=== PATIENT | female | born 1945 | race Caucasian/White ===

== ENCOUNTER → 2016-06-09 | Outpatient (CLI) | payer OTHER ==
[2016-06-09 13:11] LABS: ALT/SGPT 27 U/L (12-78); AST/SGOT 15 U/L (15-37); BLOOD UREA NITROGEN 19 mg/dl (7-18); BUN/CREATININE RATIO 30.3 (10-20); CALCIUM 8.9 mg/dl (8.5-10.1); CARBON DIOXIDE 29 mmol/L (21-32); CHLORIDE 107 mmol/L (98-107); CREATININE 0.64 mg/dl (0.60-1.20); GLUCOSE 90 mg/dl (70-99); POTASSIUM 3.9 mmol/L (3.5-5.1); SODIUM 142 mmol/L (136-145)
[2016-06-09 13:14] LABS: ALB/GLOB RATIO 0.9 (0.9-2); ALKALINE PHOSPHATASE 74 U/L (45-117); CHOLESTEROL 173 mg/dl (0-200); CHOLESTEROL/HDL RATIO 3.3; HDL CHOLESTEROL 53 mg/dl; LDL CHOLESTEROL CALCULATED 94 mg/dl; TRIGLYCERIDES 130 mg/dl (0-150); VERY LOW DENSITY LIPOPROT CALC 26 mg/dl
== END | disposition home or self-care (01) ==
LOC: C.LABBFT 07:54
PROVIDERS: ATTEND Physician Assistant Medical
DX: E78.00 Pure hypercholesterolemia, unspecified (principal)

== ENCOUNTER → 2016-06-16 | Outpatient (CLI) | payer OTHER | END | disposition home or self-care (01) | LOC: C.LABSPEC 17:30 | PROVIDERS: ATTEND Physician Assistant Medical | DX: Z12.11 Encounter for screening for malignant neoplasm of colon (principal) ==

== ENCOUNTER 2025-01-14 08:11 | Observation (INO) ==
--- NOTE | 2024-12-12 13:48 | PAT Medication Instructions ---
Medication Instructions Date of Service December 12, 2024 Home Medications Medication Instructions Recorded cholecalciferol (vitamin D3) 50 2,000 unit PO DAILY #30 caps 11/23/24 mcg (2,000 unit) capsule latanoprostene bunod 0.024 % eye drops (Vyzulta) 1 drops ophthalmic (eye) HS omega-3 fatty acids [Fish Oil Concentrate] 1 cap PO DAILY timolol maleate 0.5 % eye drops 1 drp ophthalmic (eye) QAM cholecalciferol (vitamin D3) 50 mcg (2,000 unit) capsule 2,000 unit PO DAILY sumatriptan succinate 50 mg tablet 50 mg PO DAILY PRN Migraine Headache STOP taking 2 weeks before surgery (or as soon as possible if surgery is within 2 weeks) omega-3 fatty acids [Fish Oil Concentrate] 1 cap PO DAILY DO NOT take the morning of surgery cholecalciferol (vitamin D3) 50 mcg (2,000 unit) capsule 2,000 unit PO DAILY Take morning of surgery With a small sip of water, OTHERWISE NOTHING TO EAT OR DRINK AFTER MIDNIGHT: timolol maleate 0.5 % eye drops 1 drp ophthalmic (eye) QAM sumatriptan succinate 50 mg tablet 50 mg PO DAILY PRN Migraine Headache (if needed) Take evening before surgery latanoprostene bunod 0.024 % eye drops (Vyzulta) 1 drops ophthalmic (eye) HS sumatriptan succinate 50 mg tablet 50 mg PO DAILY PRN Migraine Headache (if needed) Other Notes If you have any questions please call us at [phone] or [phone] or [phone] or [phone]
--- NOTE | 2024-12-18 10:55 | Anesthesiology Consultation ---
Date of Service December 18, 2024 Assessment & Plan (1) Encounter for pre-operative examination: Plan - workload note to PCP regarding pre-op testing including abnormal EKG and if patient needs cardiology evaluation prior to surgery. Case discussed in detail with Dr. Staton who agreed with plan. Surgeon's office made aware. Patient made aware at PAT visit after review of EKG tracing. - Outpatient joint assessment: Patient is currently scheduled for inpatient pathway. If re-evaluated and patient/surgeon requests outpatient pathway, patient is not a candidate for outpatient joint program. Chart Review Chart Review: Patient seen in Pre Admission Testing Teaching & Discussion Pre-Anesthesia Teaching/Discussion Notes: Instructed NPO after midnight before surgery, except medications with 15 cc of water. Medication instructions provided according to the [facility] guidelines. History Surgery Operation Date: 01/14/25 13:00 Proposed Procedures p Right Anterior Total Hip Arthroplasty - Rubens Hutchison DO Height/Weight Height: 5 ft 2 in Weight: 86.8 kg Allergies Allergy/AdvReac Type Severity Reaction Status Date / Time hydrochlorothiazide AdvReac Intermediate hyponatremi Verified 12/14/24 10:02 a Medications Home Medications Medication Instructions Recorded Confirmed Last Taken latanoprostene bunod 0.024 % eye 1 drops ophthalmic (eye) HS 02/25/19 12/14/24 Unknown drops (Vyzulta) omega-3 fatty acids [Fish Oil 1 cap PO DAILY 03/02/19 12/14/24 Unknown Concentrate] timolol maleate 0.5 % eye drops 1 drp ophthalmic (eye) QAM 09/13/24 12/14/24 Unknown cholecalciferol (vitamin D3) 50 2,000 unit PO DAILY #30 caps 11/23/24 12/14/24 Unknown mcg (2,000 unit) capsule sumatriptan succinate 50 mg tablet 50 mg PO DAILY PRN Migraine 12/05/24 12/14/24 Unknown Headache Past Medical History Medical History (Updated 12/18/24 @ 15:46 by Zeny Cruz PA-C) Acid reflux diet related Bleeding from the nose "Very prone" - intermittent Depression Glaucoma History of adverse reaction to anesthesia woke up during colonoscopy "could hear and feel everything" Obstructive sleep apnea unable tolerate cpap - no device Ocular migraine hx Osteoarthritis of right hip reason for procedure 01/14/25 Osteopenia Vitamin D deficiency Patient denies h/o stroke, seizures, heart attack, heart failure, DM, HTN, blood clots/DVTs or blood transfusions. Exercise / Class Metabolic Activity II 4-5 Yardwork/Stairs/Walk up hill (denies chest discomfort or shortness of breath walking up one flight of stairs) Past Family History Family History Mother Atrial fibrillation Glaucoma Pneumonia Father Pneumonia Dementia Denies family history of Ovarian cancer Prostate cancer Myocardial infarction Breast cancer Colorectal cancer Past Surgical History Surgical History History of section x2 History of colonoscopy History of D&C multiple History of tooth extraction as a child History of tubal ligation Past Anesthesia History No Family Hx of Anesthesia Complications and Other (awareness during colonoscopy) History of PONV No Hx of PONV and Hx of Motion Sickness Social History Smoking Status: Never smoker Do You Dip or Chew Tobacco: No Hx Alcohol Use: Yes Alcohol type: wine alcohol intake frequency: holidays/special occasions only Hx Substance Use: No substance use type: does not use Review of Systems Patient denies chest pain, shortness of breath, dyspnea on exertion, fever, chills, cough, wheezing, or palpitations. Physical Exam Vital Signs Vitals BP 142/76 P 70 TEMP 98 SP02 95% on RA RESP 18 Physical Patient resting comfortably in chair in no acute distress, alert and oriented, responding appropriately throughout visit Full cervical extension range of motion without pain TMD 3 finger breadths Mallampati Score 3 Dentition: several crowns and partial, denies chipped or loose teeth, crowns, implants or bridges Lungs: normal respiratory effort. Good air movement, clear throughout to auscultation, no adventitious breath sounds Cardiac: regular rate and rhythm, no murmurs noted Carotid arteries: negative bruit bilat Lab Results Anesthesia Preop Results Results Anesthesia Widget: WBC 9.41 K/ul (4.8-10.8) 12/18/24 Hgb 13.5 g/dl (12.0-16.0) 12/18/24 Hct 39.8 % (37.0-47.0) 12/18/24 Plt 280 K/uL (130-400) 12/18/24 Na 135 mmol/L (136-145) L 12/18/24 K 4.5 mmol/L (3.5-5.1) 12/18/24 Cl 100 mmol/L (98-107) 12/18/24 CO2 29 mmol/L (21-32) 12/18/24 BUN 13 mg/dl (6-23) 12/18/24 Creat 0.56 mg/dl (0.6-1.2) L 12/18/24 Glucose Level 93 mg/dl (70-99(Fasting)) 12/18/24 PT 10.4 Seconds (9.0-12.0) 12/18/24 PTT 27 Seconds (21-31) 12/18/24 INR 1.0 (0.9-1.1) 12/18/24 Urine Appearance Slightly Cloudy 11/29/24 Blood Type O Positive 12/18/24 Antibody Screen NEGATIVE 12/18/24 Testing Electrocardiogram Date: 12/18/24 NSR, rate 65 bpm Minimal voltage criteria for LVH, may be normal variant Possible inferior infarct, age undetermined ST & T wave abnormality, consider anterior ischemia When compared with 11/01/2002 EKG, T wave inversion now evident in anterior leads Chest X-Ray Date: 12/18/24 No acute findings. Echocardiogram Date: 10/15/24 EF 55-60% Normal LV wall motion Mild cLVH Grade I diastolic dysfunction Mild to moderate aortic regurgitation
--- NOTE | 2025-01-10 12:22 | History & Physical Report ---
Date of Service January 10, 2025 Assessment & Plan (1) Osteoarthritis of right hip: We will proceed with a right anterior total of arthroplasty. Postoperatively, she will be started on aspirin for DVT prophylaxis and kept overnight in the hospital for postop medical management. She plans to use [facility] physical therapy after discharge. History of Present Illness Chief Complaint: Osteoarthritis right hip. Primary Care Provider: Sushma Escobedo MD Ni is a pleasant 79-year-old female who has been dealing with chronic worsening right hip and groin pain. She has been treated by one of my partners. She was diagnosed with right hip arthritis. She was given intraarticular hip injection. The injection gave her some relief but it did not last long. After failing conservative treatment, she has elected proceed with a right anterior total hip arthroplasty. Allergies Allergy/AdvReac Type Severity Reaction Status Date / Time hydrochlorothiazide AdvReac Intermediate hyponatremi Verified 01/09/25 12:52 a Home Medications Medication Instructions Recorded Confirmed Type latanoprostene bunod 0.024 % eye 1 drops ophthalmic (eye) HS 02/25/19 01/09/25 History drops (Vyzulta) omega-3 fatty acids [Fish Oil 1 cap PO DAILY 03/02/19 01/09/25 History Concentrate] timolol maleate 0.5 % eye drops 1 drp ophthalmic (eye) QAM 09/13/24 01/09/25 History cholecalciferol (vitamin D3) 50 2,000 unit PO DAILY #30 caps 11/23/24 01/09/25 Rx mcg (2,000 unit) capsule sumatriptan succinate 50 mg tablet 50 mg PO DAILY PRN Migraine 12/05/24 01/09/25 History Headache Past Med/Surg History Problem List Encounter for pre-operative examination Osteoarthritis of right hip Hypertriglyceridemia Impaired fasting glucose Obstructive sleep apnea Depression Osteopenia Glaucoma Hypercholesteremia Medical History Bleeding from the nose "Very prone" - intermittent History of adverse reaction to anesthesia woke up during colonoscopy "could hear and feel everything" Acid reflux diet related Osteopenia Osteoarthritis of right hip reason for procedure 01/14/25 Glaucoma Vitamin D deficiency Obstructive sleep apnea unable tolerate cpap - no device Ocular migraine hx Depression Surgical History History of tooth extraction as a child History of D&C multiple History of tubal ligation History of colonoscopy History of section x2 Family History Mother Atrial fibrillation Glaucoma Pneumonia Father Pneumonia Dementia Denies family history of Ovarian cancer Prostate cancer Myocardial infarction Breast cancer Colorectal cancer Social History Smoking Status: Never smoker Second Hand Exposure: No; Do You Dip or Chew Tobacco: No; Hx Alcohol Use: Yes Alcohol type: wine Alcohol Intake Frequency: Monthly or Less Hx Substance Use: No Preferred Language: Belarusian Communication Ability: Effective Visual Impairment: No Limitations Hearing Ability: Normal Rail Car 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 Physical Exam On physical exam of the right hip, she has decreased range of motion. She has pain with internal/external rotation. All of her pains located in the groin.. Constitutional WD/WN, vitals as above Eyes PERRL, conjunctivae normal, anicteric sclerae ENMT external ear and nose normal, oropharynx normal Neck trachea midline, no thyromegaly Respiratory normal respiratory effort Cardiovascular RRR, no murmur, no edema Gastrointestinal (Abdomen) normal bowel sounds, soft, nontender, no hepatosplenomegaly Psychiatric A+Ox3, euthymic affect Results & Data Results & Data Laboratory Results . Diagnostic Findings . PG Care Time/CCT Total # of Minutes Spent Total Time Spent with Patient: Total time spent is greater than 50% in coordination of care (as documented) at patient's floor/unit and/or counseling patient: Coding Level of Care Code None Diagnoses Osteoarthritis of right hip M16.11
[~2025-01-14 08:11] MED LIST: BUPIVACAINE 0.5 % 5 MG/1 ML PF 10ML VIAL ONE
[2025-01-14] MEDS ORDERED: ATROPINE SULFATE 0.1 MG/ML 10ML SYR IV PRN (08:17)
[2025-01-14] MEDS ORDERED: PROMETHAZINE HCL 6.25 MG in SODIUM CHLORIDE 0.9% 50 ML IV PRN (08:17)
[2025-01-14] MEDS ORDERED: ONDANSETRON INJ 2 MG/ML 2 ML VIAL IV PRN ×2 (08:17→12:32)
[2025-01-14] MEDS: LR 60ML/HR IV SCH (08:36)
[2025-01-14] MEDS: ACETAMINOPHEN 500 MG TAB PO SCH ×2 (08:36→14:16)
[2025-01-14] MEDS: LR 500ML BOLUS, THEN 15ML/HR IV SCH (08:36)
[2025-01-14] MEDS: GABAPENTIN 300 MG CAP PO SCH (08:37)
[2025-01-14] MEDS: FAMOTIDINE 20 MG TAB PO SCH (08:37)
[2025-01-14] MEDS: dexAMETHasone**PF** 10 MG/ML VIAL IV SCH (08:37)
[2025-01-14] MEDS ORDERED: MIDAZOLAM HCL 1 MG/ML 2ML VIAL ONE ×2 (08:38→09:51)
[2025-01-14] MEDS ORDERED: PROPOFOL IV EMULSION 10 MG/ML 20 ML VIAL IV ONE ×2 (08:38→10:51)
--- NOTE | 2025-01-14 08:47 | History & Physical Bridge Note ---
Date of Service January 14, 2025 History & Physical Bridge Note I have examined the patient, reviewed the History & Physical and in the interval since the performance of the History & Physical I have noted the following changes of clinical significance: no changes noted
[2025-01-14] MEDS: TRANEXAMIC ACID 1,000 MG **IV Pre-op IV SCH (09:34)
[2025-01-14] MEDS ORDERED: ePHEDrine sulfate 50 MG/5 ML SYR ONE (10:00)
[2025-01-14] MEDS: ROPIV 0.5% 246mg, Ketorolac 30mg, EPINEPHrine 0.5mg in NSS INFIL SCH (10:15)
[2025-01-14] MEDS: ORTHO JOINT ANESTHETIC ONE (10:16)
--- NOTE | 2025-01-14 10:46 | Operative Report ---
PG Post Operative Report Pre & Post Diagnosis Operation Date: 01/14/25 10:00 Pre-Op Diagnosis: Osteoarthritis of right hip Post-Op Diagnosis: Osteoarthritis of right hip I identified the patient and participated in the time-out.: Yes Procedure Operation Date: 01/14/25 10:00 Actual Procedures p Right Anterior Total Hip Arthroplasty(Right) - Rubens Hutchison DO Surgeon Ruebns Hutchison DO Manager [employer] Cindy Sahni PA-C Estimated Blood Loss 200 Findings Consistent with Post-Op Diagnosis Right femoral head Specimens Right femoral head Description of Procedure Implants used I used a ZimmerBiomet total hip arthroplasty system with a size 3 standard Z1 stem, a 50 mm G7 cup, an E1 polyethylene liner, a 36 mm ceramic head with a -3.5 neck. Ni arrived at the hospital for the above procedure. She was seen in the preoperative holding area and the operative extremity was identified and signed. She was given a spinal anesthetic, a preoperative antibiotic, and TXA. She was then taken back to the operating room and laid on the table in the supine position. She was given basic sedation. The operative leg was secured to a Puristst leg positioner. The hip was then prepped and draped in sterile fashion. A timeout was done and the patient and the operative extremity was properly identified. An anterior approach was used. Dissection was taken down through the fascia and the tensor muscle belly was retracted laterally and the rectus was retracted medially. The circumflex vessels were identified and ligated. The capsule was then incised and tagged for later repair. The femoral neck was then cut and the femoral head was removed. The acetabulum was exposed. Time was spent doing a complete circumferential labral release. Sequential reaming of the acetabulum up to a size 49 reamer was done. Final reamings were done under fluoroscopy to ensure appropriate version. A Biomet 50 mm G7 cup was then impacted into place. The E1 polyethylene liner was then snapped into place. Surrounding soft tissues were then injected with 100 cc of an orthopedic pain control cocktail. The proximal femur was then exposed. Sequential broaching up to a size 3 broach was done. Off that broach a size 36 head with a -3.5 neck was trialed. The hip was reduced and fluoroscopic images showed anatomic alignment of the implants in acceptable length. The broach was removed. The final size 3 standard offset Z1 stem was then impacted into place. A ceramic 36 mm head with a -3.5 neck was then impacted onto the stem and the hip was reduced. Final fluoroscopic images showed anatomic alignment of the hip. The capsule was then closed with #1 Vicryl suture. Irrisept was then done for 3 minutes. The joint was then irrigated with normal saline solution. The fascia was closed with #1 PDS suture. Skin was closed with 2-0 Vicryl, [place] Zipline, and a Silverlon dressing. She was then transferred to a hospital bed and taken to the post anesthesia care unit in stable condition. She tolerated the procedure well. Cindy Sahni PA-C, was present for the entire procedure. He was critical for patient positioning, prepping, draping, retraction exposure, wound closure and application of sterile dressing. I attest to the content of the Intraoperative Record and any orders documented therein. Any exceptions are noted below.
--- NOTE | 2025-01-14 11:45 | Anesthesiology Progress Note ---
Date of Service January 14, 2025 Anesthesia Post Procedure Vital Signs Vital Signs: Temp Pulse Pulse Resp BP BP Pulse Ox 01/14/25 11:40 61 18 125/54 L 97 01/14/25 11:30 64 16 128/53 L 95 01/14/25 11:20 36.2 C L 72 17 119/59 L 100 01/14/25 08:25 36.7 C 76 20 178/81 H 97 O2 Del Method O2 Flow Rate 01/14/25 11:40 Room Air 01/14/25 11:30 Room Air 01/14/25 11:20 Oxymask 7 01/14/25 08:25 Room Air Transfer of Care Handoff Completed per policy Notes Mental Status: alert / awake / arousable Patient Amnestic to Procedure: Yes Nausea / Vomiting: adequately controlled Pain: adequately controlled Airway Patency, RR, SpO2: stable & adequate BP & HR: stable & adequate Hydration State: stable & adequate Neuraxial Anesthesia: was administered and sensory block is resolving Anesthetic Complications: no major complications apparent and Pt Satisfied with anesthetic care
--- NOTE | 2025-01-14 12:08 | XRay Report ---
XR hip 1V RT w pelvis CLINICAL HISTORY: IN PACU - Post Surgical COMPARISON: 09/13/2024 FINDINGS: Interval right hip prosthesis shows no hardware complication. There is expected soft tissu e gas. IMPRESSION: Unremarkable postoperative exam. ACT 112: Negative or not required by law. Electronically signed by: Raimundo Rodriguez M.D. 01/14/2025 12:07 PM
[2025-01-14] MEDS ORDERED: diphenhydrAMINE Capsule 25 MG CAP PO PRN (12:32)
[2025-01-14] MEDS ORDERED: MAGNESIUM HYDROXIDE SUSP 30 ML UDC PO PRN (12:32)
[2025-01-14] MEDS ORDERED: NALOXONE HCL 0.4 MG/1 ML VIAL/CARP IV PRN (12:32)
[2025-01-14] MEDS ORDERED: METOCLOPRAMIDE HCL INJ 5 MG/ML 2 ML VIAL IV PRN (12:32)
[2025-01-14] MEDS ORDERED: ALUMINUM/MAGNESIUM SUSP 30 ML UDC PO PRN (12:32)
[2025-01-14] MEDS: SODIUM CHLORIDE 0.9% 1,000 ML IV SCH (13:03)
[2025-01-14] MEDS: KETOROLAC TROMETHAMINE 15 MG/ML VIAL IV SCH (13:06)
[2025-01-14 13:37] VITALS: RESP 18
--- NOTE | 2025-01-14 13:44 | Fluoroscopy Report ---
FL hip RT 1V CLINICAL HISTORY: RT TOTAL HIP COMPARISON STUDY: 09/13/2024 FLUOROSCOPY TIME: 13 seconds FLUOROSCOPY IMAGES: 1 EXPOSURE DOSE: 2.7 mGy FINDINGS: Fluoroscopy was provided for right hip prosthesis. IMPRESSION: Intraoperative fluoroscopy. ACT 112: Negative or not required by law. Electronically signed by: Raimundo Rodriguez M.D. 01/14/2025 1:43 PM
[2025-01-14] MEDS: SENNA 8.6 MG TAB PO SCH (20:16)
[2025-01-14] MEDS: ASPIRIN 81 MG ECTAB PO SCH (20:16)
[2025-01-14] MEDS: DOCUSATE SODIUM 100 MG CAP PO SCH (20:16)
[2025-01-15 04:20] VITALS: BP 130/74; PULSE 84; TEMP 97.9; O2SAT 95
--- NOTE | 2025-01-15 08:06 | Orthopedic Progress Note ---
Date of Service January 15, 2025 Assessment & Plan (1) S/P total right hip arthroplasty: * Continue Current Treatment * Disposition: home with home PT * Daily treatment: Physical Therapy/ Occupational Therapy per protocol * Weight bearing status: as tolerated * Continue to monitor for ABLA * Pain control * DVT prophylaxis, ASA * Office/hospital f/u 2 weeks for progress check and staple/suture removal * Plan for discharge today pending PT/OT clearance Subjective . Active Problems: S/p right total hip arthroplasty POD 1 79 y/o female s/p right total hip arthroplasty with Dr. Hutchison. Doing well overall, pain managed and improved function. Denies fever/chills, chest pain/SOB, nausea/vomiting. Otherwise no complaints. Review of Systems All systems reviewed & are unremarkable except as noted in HPI & below. Physical Exam . * General: Alert and oriented, no acute distress * Constitutional: well-developed, well-nourished. * Respiratory: Normal respiratory effort, no distress * Gastrointestinal: No tenderness to palpation, no rigidity or guarding. * Skin: No rash or lesion. * Neurologic: Grossly normal * Musculoskeletal: Right hip surgical dressing clean, dry and in place, not removed for exam. Otherwise no obvious deformity or overlying skin changes. Diffuse TTP proximal thigh and hip region. Otherwise no specific tenderness of distal thigh, lower leg, foot/ankle. AROM hip flexion intact. AROM foot/ankle intact. Sensation intact plantar/dorsal foot. Brisk capillary refill. Results & Data Results & Data Laboratory Results . Diagnostic Findings Hip X-Ray 01/14/25 10:00 FL hip RT 1V CLINICAL HISTORY: RT TOTAL HIP COMPARISON STUDY: 09/13/2024 FLUOROSCOPY TIME: 13 seconds FLUOROSCOPY IMAGES: 1 EXPOSURE DOSE: 2.7 mGy FINDINGS: Fluoroscopy was provided for right hip prosthesis. IMPRESSION: Intraoperative fluoroscopy. ACT 112: Negative or not required by law. Electronically signed by: Raimundo Rodriguez M.D. 01/14/2025 1:43 PM Hip/Pelvis X-Ray 01/14/25 11:24 XR hip 1V RT w pelvis CLINICAL HISTORY: IN PACU - Post Surgical COMPARISON: 09/13/2024 FINDINGS: Interval right hip prosthesis shows no hardware complication. There is expected soft tissue gas. IMPRESSION: Unremarkable postoperative exam. ACT 112: Negative or not required by law. Electronically signed by: Raimnudo Rodriguez M.D. 01/14/2025 12:07 PM . PG Care Time/CCT Total # of Minutes Spent Total Time Spent with Patient: Total time spent is greater than 50% in coordination of care (as documented) at patient's floor/unit and/or counseling patient: Coding Level of Care Code 48358 Post Operative Follow-Up Diagnoses S/P total right hip arthroplasty Z96.641
[2025-01-15] MEDS: CHOLECALCIFEROL 25 MCG (1000 UNITS) TAB PO SCH (08:09)
[2025-01-15] MEDS: OMEGA-3 (PURIFIED FISH OIL) 1 GM CAP PO SCH (08:09)
[2025-01-15] MEDS: MULTIVITAMIN TAB PO SCH (08:09)
[2025-01-15] MEDS: TIMOLOL MALEATE 0.5% OP SOLN 5 ML BTL OP SCH (08:10)
== END 2025-01-15 10:06 | disposition home or self-care (01) ==
LOC: ASU 08:11 → 3W 08:11